=== PATIENT | male | born 1965 | race American Indian/Alaskan Native ===

== ENCOUNTER 2022-05-20 06:12 | Inpatient (IN) | payer OTHER ==
[2022-05-20] MEDS ORDERED: LIDOCAINE 1%/EPINEPHRINE 1:100,000 VIAL (20 ML) INFILTRATI NR (07:53)
--- NOTE | 2022-05-20 07:57 | Emergency Department Report ---
ED Syncope HPI - General Chief Complaint: Syncope Stated Complaint: SYNCOPE Time Seen by Provider: 05/20/22 07:02 Source: patient Exam Limitations: no limitations - History of Present Illness Initial Comments: 57-year male with a past medical history of HIV with undetectable viral load, chronic renal sufficiency, CHF presents to the hospital complaining of syncopal episodes x2. Patient states for the last 2 days he has had a URI with cough, nasal congestion, sinus drainage, and runny nose. He denies fever, nausea, vomiting, headache, chest pain, shortness of breath, abdominal pain, diarrhea, or dysuria. Patient has been vaccinated for COVID and boosted Patient denies history of hypertension however, given his current medications and current blood pressure I suspect that he does have underlying hypertension Patient's current medications include Carvedilol 25 mg twice daily Atorvastatin 40 mg daily Pantoprazole 40 mg daily Biktarvy Entresto [id number] twice daily Allergies: Flagyl Since he has had URI symptoms he is taking [id number] Tylenol medication that contains phenylephrine and guaifenesin. He also was taking fluticasone nasal spray without relief and then switched to oxymetazoline nasal spray Patient had a syncopal episode 3 weeks ago and was placed on a monitor car operator 1.5 weeks ago to monitor event PMD is [facility]. - Related Data Allergies/Adverse Reactions: Allergies metronidazole [From Flagyl] Allergy (Verified 05/20/22 08:05) Rash ED Review of Systems ROS: Stated complaint: SYNCOPE Other details as noted in HPI Comment: All other systems reviewed and negative ED Past Medical Hx - Past Medical History Hx Congestive Heart Failure: Yes Hx Renal Disease: Yes Hx HIV: Yes ED Physical Exam - General Limitations: No Limitations - Other Other exam information: General: No acute distress Head: Posterior vertical scalp laceration 4 cm Eyes: normal appearance ENT: Moist mucous membranes Neck: Normal appearance, no midline tenderness Chest: Clear to auscultation bilaterally dry cough noted CV: Regular rate and rhythm Abdomen: Soft, normal bowel sounds, nontender, nondistended, no rebound or gu arding Back: Normal inspection Extremity: Normal inspection, full range of motion Neuro: Alert O x 3, no facial asymmetry, speech clear, no gross motor sensory deficit Psych: Appropriate behavior Skin: No rash ED Course Vital Signs 05/20/22 05/20/22 05/20/22 07:52 09:38 11:08 Temperature 98.6 F 98.0 F Pulse Rate 81 83 Pulse Rate [ 83 Lying] Respiratory 14 14 Rate Blood Pressure 149/102 [Lying] Blood Pressure 150/97 165/108 [Right] O2 Sat by Pulse 100 100 Oximetry 05/20/22 13:00 Temperature Pulse Rate 81 Pulse Rate [ Lying] Respiratory 12 Rate Blood Pressure [Lying] Blood Pressure 160/108 [Right] O2 Sat by Pulse 99 Oximetry - Consultations Consultation #1: 05/20/22 12:00 mikey Castro reviewed chart. recent admission for CP and syncope, seen by cardiolgy May 03 admitted decreased in EF, received cath. LAD 50% mid, RCA proximal 20-30% lesions identified. MEdical management and 30 monitor recommended, Ca veritoiogy apt tomorrow to remove halter monitor. No beds. She will speak to card and call back 05/20/22 12:44 received call back from Mikey YUEN at this time. SHE spoke to the cardiology nurse practitioner that evaluated the patient during recent admission. She states that they wanted to discharge patient on LifeVest given low EF and syncope however, had approval issues prior to discharge. Recommends admission to the hospital. [facility] do not have bed therefore they recommend admission here - Laceration /Wound Repair Head Wound Location: head (posterior scalp) Wound Length (cm): 4 Wound's Depth, Shape: linear Wound Explored: clean Irrigated w/ Saline (ccs): 100 Anesthesia: Lidocaine w/ Epi Volume Anesthetic (ccs): 5 Wound Repaired With: sutures (adrienne) Number of Sutures: 4 Layer Closure?: No Sterile Dressing Applied?: No ED Medical Decision Making - Lab Data Result diagrams: 05/20/22 08:22 05/20/22 08:22 Lab Results 05/20/22 05/20/22 05/20/22 Range/Units 08:22 08:22 08:22 WBC 8.5 (4.5-11.0) K/mm3 RBC 3.53 L (3.65-5.03) M/mm3 Hgb 11.6 L (11.8-15.2) gm/dl Hct 35.0 L (35.5-45.6) % MCV 99 H (84-94) fl MCH 33 H (28-32) pg MCHC 33 (32-34) % RDW 13.6 (13.2-15.2) % Plt Count 246 (140-440) K/mm3 Lymph % (Auto) 20.8 (13.4-35.0) % [place] % (Auto) 11.9 H (0.0-7.3) % Eos % (Auto) 2.8 (0.0-4.3) % Baso % (Auto) 0.5 (0.0-1.8) % Lymph # (Auto) 1.8 (1.2-5.4) K/mm3 [place] # (Auto) 1.0 H (0.0-0.8) K/mm3 Eos # (Auto) 0.2 (0.0-0.4) K/mm3 Baso # (Auto) 0.0 (0.0-0.1) K/mm3 Seg Neutrophils % 64.0 (40.0-70.0) % Seg Neutrophils # 5.4 (1.8-7.7) K/mm3 D-Dimer 306.39 H (0-234) ng/mlDDU Sodium 144 (137-145) mmol/L Potassium 4.2 (3.6-5.0) mmol/L Chloride 106.7 (98-107) mmol/L Carbon Dioxide 26 (22-30) mmol/L Anion Gap 16 mmol/L BUN 11 (9-20) mg/dL Creatinine 1.3 (0.8-1.3) mg/dL Estimated GFR 57 ml/min BUN/Creatinine Ratio 8 % Glucose 117 H (75-100) mg/dL Calcium 9.5 (8.4-10.2) mg/dL Magnesium (1.7-2.3) mg/dL Total Bilirubin 0.30 (0.1-1.2) mg/dL AST 21 (5-40) units/L ALT 17 (7-56) units/L Alkaline Phosphatase 81 (35-129) units/L Total Creatine Kinase 135 (55-170) units/L CK-MB (CK-2) 1.0 (0.0-4.0) ng/mL CK-MB (CK-2) Rel Index 0.7 (0-4) Troponin T < 0.010 (0.00-0.029) ng/mL Total Protein 7.9 (6.3-8.2) g/dL Albumin 4.4 (3.9-5) g/dL Albumin/Globulin Ratio 1.3 % 05/20/22 Range/Units 08:22 WBC (4.5-11.0) K/mm3 RBC (3.65-5.03) M/mm3 Hgb (11.8-15.2) gm/dl Hct (35.5-45.6) % MCV (84-94) fl MCH (28-32) pg MCHC (32-34) % RDW (13.2-15.2) % Plt Count (140-440) K/mm3 Lymph % (Auto) (13.4-35.0) % [place] % (Auto) (0.0-7.3) % Eos % (Auto) (0.0-4.3) % Baso % (Auto) (0.0-1.8) % Lymph # (Auto) (1.2-5.4) K/mm3 [place] # (Auto) (0.0-0.8) K/mm3 Eos # (Auto) (0.0-0.4) K/mm3 Baso # (Auto) (0.0-0.1) K/mm3 Seg Neutrophils % (40.0-70.0) % Seg Neutrophils # (1.8-7.7) K/mm3 D-Dimer (0-234) ng/mlDDU Sodium (137-145) mmol/L Potassium (3.6-5.0) mmol/L Chloride (98-107) mmol/L Carbon Dioxide (22-30) mmol/L Anion Gap mmol/L BUN (9-20) mg/dL Creatinine (0.8-1.3) mg/dL Estimated GFR ml/min BUN/Creatinine Ratio % Glucose (75-100) mg/dL Calcium (8.4-10.2) mg/dL Magnesium 2.20 (1.7-2.3) mg/dL Total Bilirubin (0.1-1.2) mg/dL AST (5-40) units/L ALT (7-56) units/L Alkaline Phosphatase (35-129) units/L Total Creatine Kinase (55-170) units/L CK-MB (CK-2) (0.0-4.0) ng/mL CK-MB (CK-2) Rel Index (0-4) Troponin T (0.00-0.029) ng/mL Total Protein (6.3-8.2) g/dL Albumin (3.9-5) g/dL Albumin/Globulin Ratio % - EKG Data -: EKG Interpreted by Me EKG shows normal: sinus rhythm, ST-T waves (No STEMI) Rate: normal - Radiology Data Radiology results: report reviewed Reports for CT head, chest x-ray, CT angiogram chest reviewed - Medical Decision Making 57-year-old male presents with syncope. Recent admission to hospitalization in April for syncope with cardiac work-up with inpatient cardiac work-up. Apparently LifeVest was recommended/considered but not provided prior to discharge. Patient ED work-up unremarkable. During ED stay no signs of arrhythmia, elevated troponin, pulmonary embolism, or acute intracranial abno rmality identified. Case jackie with [place] physician who advises admission here. Case discussed with hospitalist for admission. Patient states that family physician wanted to provide a LifeVest. Holter monitor was recommended at this time. He is actually scheduled to see his head automatic sawyer with [facility] tomorrow but will be admitted after discussion based on current [place] physicians recommendation Critical Care Time: No Critical care attestation.: If time is entered above; I have spent that time in minutes in the direct care of this critically ill patient, excluding procedure time. ED Disposition Clinical Impression: Syncope, Chronic CHF, URI (upper respiratory infection), HTN (hypertension), HIV (human immunodeficiency virus infection), Occipital scalp laceration Disposition: ADMITTED INPATIENT Is pt being admited?: Yes Condition: Stable Instructions: Syncope (ED), Hypertension (ED) Referrals: [facility] [Other] - 3-5 Days Time of Disposition: 12:47 (DR Huber/hospitalist)
--- NOTE | 2022-05-20 08:16 | XRay Report ---
XR chest 1V ap INDICATION / CLINICAL INFORMATION: cough, uri, syncope. COMPARISON: None available. FINDINGS: SUPPORT DEVICES: None. HEART /PULMONARY VASCULATURE: No significant abnormality. LUNGS / PLEURA: No significant pulmonary or pleural abnormality. No pneumothorax. ADDITIONAL FINDINGS: No significant additional findings. IMPRESSION: 1. No acute findings. Signer Name: Rohan Aparicio MD Signed: 05/20/2022 8:11 AM Workstation Name: [id number]
--- NOTE | 2022-05-20 08:25 | Cat Scan Report ---
CT HEAD WITHOUT CONTRAST INDICATION / CLINICAL INFORMATION: syncope, scalp laceration. TECHNIQUE: Axial imaging performed from the skull apex through the skull base without the use of cont rast. Sagittal and coronal reformatted images. All CT scans at this location are performed using CT dose reduction for ALARA by means of automated exposure control. COMPARISON: None available. FINDINGS: CEREBRAL PARENCHYMA: No significant abnormality. No acute territorial infarct. Mild chronic microvasc ular ischemic changes in the white matter are noted which appear appropriate for this person's age. HEMORRHAGE: None. EXTRA-AXIAL SPACES: Normal in size and morphology for the patient's age. VENTRICULAR SYSTEM: Normal in size and morphology for the patient's age. MIDLINE SHIFT OR HERNIATION: None. CEREBELLUM / BRAINSTEM: Chronic 9 mm infarct is identified in the posterior right cerebellar hemisphe re on image 8. CALVARIUM: No significant abnormality. ORBITS: Normal as visualized. PARANASAL SINUSES / MASTOID AIR CELLS: Normal as visualized. SOFT TISSUES of HEAD: No significant abnormality. ADDITIONAL FINDINGS: None. IMPRESSION: No acute intracranial abnormality. Chronic findings as described. Signer Name: Allen Hannah Jr, MD Signed: 05/20/2022 8:20 AM Workstation Name: [id number]
[2022-05-20 09:13] LABS: Basophils % (Auto) 0.5 % (0.0-1.8); Eosinophils # (Auto) 0.2 K/mm3 (0.0-0.4); Eosinophils % (Auto) 2.8 % (0.0-4.3); Hemoglobin 11.6 gm/dl (11.8-15.2); Lymphocytes # (Auto) 1.8 K/mm3 (1.2-5.4); Lymphocytes % (Auto) 20.8 % (13.4-35.0); Mean Corpuscular HGB Conc 33 % (32-34); Mean Corpuscular Volume 99 fl (84-94); Monocytes % (Auto) 11.9 % (0.0-7.3); Platelet Count 246 K/mm3 (140-440); Red Blood Count 3.53 M/mm3 (3.65-5.03); Red Cell Distribution Width 13.6 % (13.2-15.2)
[2022-05-20 09:48] LABS: Alanine Aminotransferase 17 units/L (7-56); Albumin 4.4 g/dL (3.9-5); BUN/Creatinine Ratio 8; Blood Urea Nitrogen 11 mg/dL (9-20); Calcium 9.5 mg/dL (8.4-10.2); Hemolysis Index 4
--- NOTE | 2022-05-20 10:53 | Cat Scan Report ---
CTA CHEST WITH CONTRAST INDICATION / CLINICAL INFORMATION: syncope, mild ddimer elevation. TECHNIQUE: Axial CT images were obtained through the chest after injection of 100 cc of Omnipaque 350 IV contrast. 3 plane MIP and/or 3D reconstructions were produced. All CT scans at this location are performed using CT dose reduction for ALARA by means of automated exposure control. COMPARISON: None available. FINDINGS: PULMONARY EMBOLUS: None. THORACIC AORTA: No significant abnormality. HEART: No significant abnormality. CORONARY ARTERY CALCIFICATION: Absent -- None. MEDIASTINUM / KAYLI: No significant abnormality. PLEURA: No pleural effusion. No pneumothorax. LUNGS: No acute air space or interstitial disease. ADDITIONAL FINDINGS: None. UPPER ABDOMEN: No acute findings. SKELETAL STRUCTURES: No significant osseous abnormality. IMPRESSION: 1. No CT evidence for pulmonary embolism. 2. No acute findings. Signer Name: Allen Hannah Jr, MD Signed: 05/20/2022 10:48 AM Workstation Name: [id number]
--- NOTE | 2022-05-20 10:59 | Electrocardiograph Report ---
[facility] Test Date: 2022-05-20 Test Time: 07:03:20 Pat Name: CHRISTOPHER PATEL Department: Room: Gender: M Straightening Machine Feeder: KARLA : 1965 Requested By: RAJESH ROMEO Order Number: [id number] Reading MD: Roddy Chowdary Measurements Intervals [place] Rate: 77 P: 11 NC: 158 QRS: -16 QRSD: 92 T: -2 QT: 360 QTc: 409 Interpretive Statements Sinus rhythm Borderline T abnormalities, diffuse leads No previous ECG available for comparison Electronically Signed On 05-20-2022 10:59:26 EDT by Roddy Chowdary
[2022-05-20] MEDS ORDERED: ACETAMINOPHEN 325 MG TAB PO PRN ×2 (12:59→21:46)
[2022-05-20] MEDS ORDERED: ONDANSETRON 4 MG/2 ML INJ IV PRN ×2 (12:59→21:46)
[2022-05-20] MEDS ORDERED: MORPHINE 2 MG/1 ML INJ IV PRN (12:59)
--- NOTE | 2022-05-20 21:41 | History and Physical Report ---
History of Present Illness Date of examination: 05/20/22 Date of admission: 05/20/22 12:59 Chief complaint: Passed out this a.m. History of present illness: 57-year-old male with past medical history of HIV with undetectable viral load, CHF apparently passed out x2 desktop publishing associate around 1:30 AM and 3 AM. Patient has been having upper respiratory tract infection for the last 2 days. Associated with sinus drainage runny nose. No fever or chills. Patient has been vaccinated for COVID. No chest pain. No aura before passing out. Patient states that he is due for LifeVest. Patient also says that his ejection fraction is 30%. Patient apparently follows with a fixture repairer fabricator at [facility]. Patient is from [facility]. Patient states that he has renal insufficiency but on checking labs 0 his creatinine is normal. No chest pain. No fever. Patient also had a syncopal episode 3 weeks ago. - Past Medical History --Congestive Heart Failure: Yes --Renal Disease: Yes --HIV: Yes -- surgical history --No Family history -Htn -social history -- no smoking /alcohol -Review of Systems --ROS: Constitutional no weight loss or weight gain no fever or chills HEENT no sore throat no post nasal drip no diplopia Neck no neck stiffness no lymph gland enlargement Chest and lungs no shortness of breath cough or wheezing CVS no chest pain no diaphoresis no palpitations GI no nausea no vomiting no diarrhea Genitourinary system no dysuria no flank pain Musculoskeletal system no muscle pains no joint pains SPA RECEPTIONIST syncope x2 Skin no rash no itching Psychiatric no depression no homicidal or suicidal tendencies Hematologic no lymphedema or bruising Endocrine no polydipsia no polyuria no cold intolerance no heat intolerance Medications and Allergies Allergies Allergy/AdvReac Type Severity Reaction Status Date / Time metronidazole [From Flagyl] Allergy Rash Verified 05/20/22 08:05 Home Medications Medication Instructions Recorded Confirmed Last Taken Type Pantoprazole [Protonix] 40 mg PO QDAY 05/21/22 05/21/22 1 Day Ago History ~05/20/22 Sacubitril/Valsartan [Entresto 97 1 tab PO BID 05/21/22 05/21/22 1 Day Ago Hist ory mg-103 mg Tablet] ~05/20/22 Active Meds: Active Medications Acetaminophen (Acetaminophen 325 Mg Tab) 650 mg PO Q4H PRN PRN Reason: Pain MILD(1-3)/Fever >100.5/GERMAN Morphine Sulfate (Morphine 2 Mg/1 Ml Inj) 2 mg IV Q4H PRN PRN Reason: Pain, Moderate (4-6) Ondansetron HCl (Ondansetron 4 Mg/2 Ml Inj) 4 mg IV Q8H PRN PRN Reason: Nausea And Vomiting Sodium Chloride (Sodium Chloride 0.9% 10 Ml Flush Syringe) 10 ml IV BID KARINA Sodium Chloride (Sodium Chloride 0.9% 10 Ml Flush Syringe) 10 ml IV PRN PRN PRN Reason: LINE FLUSH Exam - Constitutional Vitals: Temp Pulse Resp BP Pulse Ox 98.0 F 81 14 146/84 100 05/20/22 11:08 05/20/22 16:54 05/20/22 16:54 05/20/22 16:54 05/20/22 16:54 General appearance: Present: no acute distress, well-nourished - EENT Eyes: Present: PERRL ENT: hearing intact, clear oral mucosa - Neck Neck: Present: supple, normal ROM - Respiratory Respiratory effort: normal Respiratory: bilateral: CTA - Cardiovascular Heart rate: 78 Rhythm: regular Heart Sounds: Present: S1 & S2. Absent: rub, click - Extremities Extremities: no ischemia, pulses intact, pulses symmetrical, No edema Peripheral Pulses: within normal limits - Abdominal General gastrointestinal: Present: soft, non-tender, non-distended, normal bowel sounds Male genitourinary: Present: normal - Rectal Rectal Exam: deferred - Integumentary Integumentary: Present: clear, warm, dry - Musculoskeletal Musculoskeletal: gait normal, strength equal bilaterally - Psychiatric Psychiatric: appropriate mood/affect, intact judgment & insight - Neurologic Neurologic: CNII-XII intact, moves all extremities - Allied Health Allied health notes reviewed: nursing, case management HEART Score - HEART Score History: Moderately suspicious EKG: Normal Risk factors: 1-2 risk factors Troponin: Troponin T < 0.010 ng/mL (0.00-0.029) 05/20/22 08:22 - Critical Actions Critical Actions: 0-3 pts:0.9-1.7%risk of adverse cardiac event.Candidate for discharge Results - Labs CBC & Chem 7: 05/20/22 08:22 05/20/22 08:22 Labs: Laboratory Last Values WBC 8.5 K/mm3 (4.5-11.0) 05/20/22 08: RBC 3.53 M/mm3 (3.65-5.03) L 05/20/22 08:22 Hgb 11.6 gm/dl (11.8-15.2) L 05/20/22 08:22 Hct 35.0 % (35.5-45.6) L 05/20/22 08:22 MCV 99 fl (84-94) H 05/20/22 08:22 MCH 33 pg (28-32) H 05/20/22 08: MCHC 33 % (32-34) 05/20/22 08: RDW 13.6 % (13.2-15.2) 05/20/22 08: Plt Count 246 K/mm3 (140-440) 05/20/22 08:22 Lymph % (Auto) 20.8 % (13.4-35.0) 05/20/22 08: [place] % (Auto) 11.9 % (0.0-7.3) H 05/20/22 08:22 Eos % (Auto) 2.8 % (0.0-4.3) 05/20/22 08:22 Baso % (Auto) 0.5 % (0.0-1.8) 05/20/22 08:22 Lymph # (Auto) 1.8 K/mm3 (1.2-5.4) 05/20/22 08: [place] # (Auto) 1.0 K/mm3 (0.0-0.8) H 05/20/22 08:22 Eos # (Auto) 0.2 K/mm3 (0.0-0.4) 05/20/22 08:22 Baso # (Auto) 0.0 K/mm3 (0.0-0.1) 05/20/22 08: Seg Neutrophils % 64.0 % (40.0-70.0) 05/20/22 08: Seg Neutrophils # 5.4 K/mm3 (1.8-7.7) 05/20/22 08:22 D-Dimer 306.39 ng/mlDDU (0-234) H 09/08/22 08:22 Sodium 144 mmol/L (137-145) 05/20/22 08:22 Potassium 4.2 mmol/L (3.6-5.0) 05/20/22 08:22 Chloride 106.7 mmol/L (98-107) 05/20/22 08:22 Carbon Dioxide 26 mmol/L (22-30) 05/20/22 08:22 Anion Gap 16 mmol/L 05/20/22 08:22 BUN 11 mg/dL (9-20) 05/20/22 08:22 Creatinine 1.3 mg/dL (0.8-1.3) 05/20/22 08:22 Estimated GFR 57 ml/min 05/20/22 08:22 BUN/Creatinine Ratio 8 % 05/20/22 08: Glucose 117 mg/dL (75-100) H 05/20/22 08:22 Calcium 9.5 mg/dL (8.4-10.2) 05/20/22 08:22 Magnesium 2.20 mg/dL (1.7-2.3) 05/20/22 08:22 Total Bilirubin 0.30 mg/dL (0.1-1.2) 05/20/22 08:22 AST 21 units/L (5-40) 05/20/22 08:22 ALT 17 units/L (7-56) 05/20/22 08:22 Alkaline Phosphatase 81 units/L (35-129) 05/20/22 08:22 Total Creatine Kinase 135 units/L (55-170) 05/20/22 08:22 CK-MB (CK-2) 1.0 ng/mL (0.0-4.0) 05/20/22 08:22 CK-MB (CK-2) Rel Index 0.7 (0-4) 05/20/22 08:22 Troponin T < 0.010 ng/mL (0.00-0.029) 05/20/22 08:22 Total Protein 7.9 g/dL (6.3-8.2) 05/20/22 08:22 Albumin 4.4 g/dL (3.9-5) 05/20/22 08:22 Albumin/Globulin Ratio 1.3 % 05/20/22 08:22 - Imaging and Cardiology EKG: report reviewed (Sinus rhythm borderline T wave abnormalities) CT scan - abdomen: report reviewed Assessment and Plan Advance Directives: Yes (Full code) VTE prophylaxis?: Chemical Plan of care discussed with patient/family: Yes - Patient Problems (1) Syncope Current Visit: Yes Status: Acute Qualifiers: Syncope type: vasovagal syncope Qualified Code(s): R55 - Syncope and collapse Plan to address problem: Syncope work-up Echocardiogram for ejection fraction, valve function abnormalities and wall m otion abnormalities (2) HTN (hypertension) Current Visit: Yes Status: Chronic Qualifiers: Hypertension type: primary hypertension Qualified Code(s): I10 - Essential (primary) hypertension Plan to address problem: Continue antihypertensives (3) HIV (human immunodeficiency virus infection) Current Visit: Yes Status: Chronic Qualifiers: HIV symptom status: asymptomatic, with no history of HIV-related illness Qualified Code(s): Z21 - Asymptomatic human immunodeficiency virus [HIV] infection status Plan to address problem: Continue antiretrovirals Antiretrovirals to be reconciled (4) Chronic CHF Current Visit: Yes Status: Chronic Qualifiers: Heart failure type: combined systolic and diastolic Qualified Code(s): I50.42 - Chronic combined systolic (congestive) and diastolic (congestive) heart failure Plan to address problem: Echocardiogram for ejection fraction (5) Arrhythmia Current Visit: Yes Status: Chronic Plan to address problem: Patient on event monitor Patient follows with cardiology at [facility] consult requested Apparently patient is due for LifeVest (6) DVT prophylaxis Current Visit: Yes Status: Acute Plan to address problem: On heparin and GI prophylaxis (7) Advanced care planning/counseling discussion Current Visit: Yes Status: Acute Plan to address problem: Disease education conducted, care plan discussed, small prognosis and diagnosis discussed. Patient is full code. Patient acknowledges understanding of the care plan. +30 minutes.
[2022-05-20] MEDS ORDERED: METOCLOPRAMIDE 10 MG/2 ML INJ IV PRN (21:46)
[2022-05-20] MEDS ORDERED: oxyCODONE /ACETAMINOPHEN 5-325MG TAB PO PRN (21:46)
[2022-05-20] MEDS: FAMOTIDINE 20 MG TAB PO SCH (23:00)
[2022-05-21] MEDS: HYDROmorphone 0.5 MG/0.5 ML INJ IV PRN ×2 (09:25→13:26)
[2022-05-21] MEDS: FAMOTIDINE 20 MG TAB PO SCH ×2 (09:25→22:04)
--- NOTE | 2022-05-21 09:56 | Progress Note ---
Assessment and Plan Assessment and plan: Advance Directives: Yes (Full code) VTE prophylaxis?: Chemical Plan of care discussed with patient/family: Yes - Patient Problems --Syncopal episode x2 Syncope work-up is in progress Fall precautions, physical therapy Physical therapy evaluation and management/DC needs Possible discharge tomorrow pending PT evaluation recommendations Syncope work-up ; negative CT head without contrast; no acute intracranial abnormality, chronic findings as described below Chest x-ray; no acute abnormality noted CT chest; no evidence of PE, no other acute abnormalities Echocardiogram; LVEF 35 to 40% no pericardial effusion Carotid Doppler; less than 50% stenosis in bilateral carotid arteries no hemo dynamically significant. Stenosis --History of HTN (hypertension) moderate control Continue current antihypertensives As needed medications --History of HIV (human immunodeficiency virus infection) Continue antiretrovirals Antiretrovirals to be reconciled -- Chronic systolic CHF present on admission Echo LVEF 35 to 40% Continue antifailure medications --History of arrhythmia Patient on event monitor Patient follows with cardiology at [facility] consult requested Apparently patient is due for LifeVest --DVT prophylaxis On heparin and GI prophylaxis -- Advanced care planning/counseling discussion Disease education conducted, care plan discussed, small prognosis and diagnosis discussed. Patient is full code. Patient acknowledges understanding of the care plan. +30 minutes. --preventative health care counseling; 35 minutes Advised fall precautions, advised to use cane or a walker if needed Advised to comply with medications, diet, follow-up visits Advised to comply with HIV medications and treatment plan Patient verbalized understanding [facility] physician I called [facility] physician at [phone] discussed in detail with Dr. Mascorro patient's condition, Tests and reports physical therapy and improvement Pending PT evaluation and recommendations Dr. Mascorro has some questions I answered all of them, will follow PT evaluation and recommendations and discharge her home tomorrow if stable. Dr. Mascorro was appreciative of my call History Interval history: I have seen and examined the patient at the bedside Patient's chart and medications reviewed No new events reported by nursing Patient was admitted with history of syncopal episode No new episodes of syncope Vital signs reviewed Hospitalist Physical - Constitutional Vitals: Temp Pulse Resp BP Pulse Ox 98.0 F 76 18 154/96 97 05/21/22 08:31 05/21/22 08:31 05/21/22 08:31 05/21/22 08:31 09/09/22 08:31 General appearance: Present: no acute distress, well-nourished, obese - EENT Eyes: Present: PERRL, EOM intact - Neck Neck: Present: supple, normal ROM - Respiratory Respiratory effort: normal Respiratory: bilateral: diminished, negative: rales, rhonchi, wheezing - Cardiovascular Rhythm: regular Heart Sounds: Present: S1 & S2 - Extremities Extremities: no ischemia, No edema - Abdominal General gastrointestinal: soft, non-tender, non-distended, normal bowel sounds - Integumentary Integumentary: Present: clear, warm - Psychiatric Psychiatric: appropriate mood/affect, cooperative - Neurologic Neurologic: CNII-XII intact, moves all extremities HEART Score - HEART Score EKG: Normal Risk factors: 1-2 risk factors Troponin: Troponin T < 0.010 ng/mL (0.00-0.029) 05/20/22 22:44 - Critical Actions Critical Actions: 0-3 pts:0.9-1.7%risk of adverse cardiac event.Candidate for discharge Results - Labs CBC & Chem 7: 05/21/22 15:09 05/21/22 15:09 Labs: Laboratory Last Values WBC 8.5 K/mm3 (4.5-11.0) 05/20/22 08:22 RBC 3.53 M/mm3 (3.65-5.03) L 05/20/22 08:22 Hgb 11.6 gm/dl (11.8-15.2) L 05/20/22 08:22 Hct 35.0 % (35.5-45.6) L 05/20/22 08:22 MCV 99 fl (84-94) H 05/20/22 08:22 MCH 33 pg (28-32) H 05/20/22 08:22 MCHC 33 % (32-34) 05/20/22 08:22 RDW 13.6 % (13.2-15.2) 05/20/22 08:22 Plt Count 246 K/mm3 (140-440) 05/20/22 08:22 Lymph % (Auto) 20.8 % (13.4-35.0) 05/20/22 08:22 [place] % (Auto) 11.9 % (0.0-7.3) H 05/20/22 08:22 Eos % (Auto) 2.8 % (0.0-4.3) 05/20/22 08:22 Baso % (Auto) 0.5 % (0.0-1.8) 05/20/22 08:22 Lymph # (Auto) 1.8 K/mm3 (1.2-5.4) 05/20/22 08:22 [place] # (Auto) 1.0 K/mm3 (0.0-0.8) H 05/20/22 08:22 Eos # (Auto) 0.2 K/mm3 (0.0-0.4) 05/20/22 08:22 Baso # (Auto) 0.0 K/mm3 (0.0-0.1) 05/20/22 08:22 Seg Neutrophils % 64.0 % (40.0-70.0) 05/20/22 08: Seg Neutrophils # 5.4 K/mm3 (1.8-7.7) 05/20/22 08:22 D-Dimer 306.39 ng/mlDDU (0-234) H 05/20/22 08:22 Sodium 144 mmol/L (137-145) 05/20/22 08:22 Potassium 4.2 mmol/L (3.6-5.0) 05/20/22 08:22 Chloride 106.7 mmol/L (98-107) 05/20/22 08:22 Carbon Dioxide 26 mmol/L (22-30) 05/20/22 08:22 Anion Gap 16 mmol/L 05/20/22 08:22 BUN 11 mg/dL (9-20) 05/20/22 08:22 Creatinine 1.3 mg/dL (0.8-1.3) 05/20/22 08:22 Estimated GFR 57 ml/min 05/20/22 08:22 BUN/Creatinine Ratio 8 % 05/20/22 08:22 Glucose 117 mg/dL (75-100) H 05/20/22 08:22 Calcium 9.5 mg/dL (8.4-10.2) 05/20/22 08:22 Magnesium 2.20 mg/dL (1.7-2.3) 05/20/22 08:22 Total Bilirubin 0.30 mg/dL (0.1-1.2) 05/20/22 08:22 AST 21 units/L (5-40) 05/20/22 08:22 ALT 17 units/L (7-56) 05/20/22 08:22 Alkaline Phosphatase 81 units/L (35-129) 05/20/22 08:22 Total Creatine Kinase 135 units/L (55-170) 05/20/22 08:22 CK-MB (CK-2) 1.0 ng/mL (0.0-4.0) 05/20/22 08:22 CK-MB (CK-2) Rel Index 0.7 (0-4) 05/20/22 08:22 Troponin T < 0.010 ng/mL (0.00-0.029) 05/20/22 22:44 Total Protein 7.9 g/dL (6.3-8.2) 05/20/22 08:22 Albumin 4.4 g/dL (3.9-5) 05/20/22 08:22 Albumin/Globulin Ratio 1.3 % 05/20/22 08:22 [place]/IV: Voiding Method Urinal Active Medications - Current Medications Current Medications: Generic Name Dose Route Start Last Admin Trade Name Freq PRN Reason Stop Dose Admin Acetaminophen 650 mg 05/20/22 21:46 Acetaminophen 325 Mg Tab PO Q4H PRN Pain MILD(1-3)/Fever >100.5/GERMAN Famotidine 20 mg 05/20/22 22:00 05/21/22 09:25 Famotidine 20 Mg Tab PO 20 mg BID KARINA Administration Hydromorphone HCl 0.5 mg 05/20/22 21:46 05/21/22 09:25 Hydromorphone 0.5 Mg/0.5 Ml Inj IV 0.5 mg Q3H PRN Administration Pain , Severe (7-10) Metoclopramide HCl 10 mg 05/20/22 21:46 Metoclopramide 10 Mg/2 Ml Inj IV Q6H PRN Nausea And Vomiting Morphine Sulfate 2 mg 05/20/22 12:59 Morphine 2 Mg/1 Ml Inj IV Q4H PRN Pain, Moderate (4-6) Ondansetron HCl 4 mg 05/20/22 21:46 Ondansetron 4 Mg/2 Ml Inj IV Q8H PRN Nausea And Vomiting Oxycodone/Acetaminophen 1 tab 05/20/22 21:46 Oxycodone /Acetaminophen 5-325mg Tab PO Q6H PRN Pain, Moderate (4-6) Sodium Chloride 10 ml 05/20/22 22:00 05/21/22 09:25 Sodium Chloride 0.9% 10 Ml Flush Syringe IV 10 ml BID KARINA Administration Sodium Chloride 10 ml 05/20/22 21:46 Sodium Chloride 0.9% 10 Ml Flush Syringe IV PRN PRN LINE FLUSH
--- NOTE | 2022-05-21 10:33 | Vascular Lab Report ---
DUPLEX DOPPLER ULTRASOUND CAROTID, BILATERAL INDICATION / CLINICAL INFORMATION: Syncope. COMPARISON: None available. FINDINGS: RIGHT CAROTID: Minimal atherosclerotic plaque. - PLAQUE ESTIMATE (%): < 50% - CCA velocity: 85 cm/sec. - ICA peak systolic velocity: 75 cm/sec. - ICA/CCA PSV Ratio: Less than 2. Right Vertebral Artery: Antegrade flow. LEFT CAROTID: Minimal atherosclerotic plaque. - PLAQUE ESTIMATE (%): < 50% - CCA velocity: 87 cm/sec. - ICA peak systolic velocity: 94 cm/sec. - ICA/CCA PSV Ratio: Less than 2. Left Vertebral Artery: Antegrade flow. IMPRESSION: 1. Right Internal Carotid Artery: Less than 50% diameter stenosis. 2. Left Internal Carotid Artery: Less than 50% diameter stenosis. Velocity criteria are extrapolated from diameter data as defined by the Society of Radiologists in Ul trasound Consensus Conference, Radiology 2003; 229;340-346. NO STENOSIS (NORMAL) - Plaque = none; ICA PSV < 125 cm/sec; ICA/CCA PSV Ratio < 2.0 <50% STENOSIS - Plaque < 50%; ICA PSV < 125 cm/sec; ICA/CCA PSV Ratio < 2.0 50-69% STENOSIS - Plaque > 50%; ICA PSV = 125-230 cm/sec; ICA/CCA PSV Ratio = 2.0-4.0 >70% BUT <100% STENOSIS - Plaque > 50%; ICA PSV > 230 cm/sec; ICA/CCA PSV Ratio > 4.0 NEAR OCCLUSION - Plaque = visible lumen; ICA PSV = high/low/none; ICA/CCA PSV Ratio = variable TOTAL OCCLUSION - Plaque = no lumen; ICA PSV = none; ICA/CCA PSV Ratio = N/A Scribed by: Zuleyma Tavares RDMS, RVT, RMSKS Scribed: 05/21/2022 9:28 AM I have reviewed the images, agree with this report, and edited this report as needed. Signer Name: Genaro West MD Signed: 05/21/2022 10:29 AM Workstation Name: [email or web address]
[2022-05-21 15:49] LABS: Alanine Aminotransferase 17 units/L (7-56); Albumin 3.9 g/dL (3.9-5); BUN/Creatinine Ratio 10; Basophils % (Auto) 0.6 % (0.0-1.8); Blood Urea Nitrogen 13 mg/dL (9-20); Calcium 9.1 mg/dL (8.4-10.2); Eosinophils # (Auto) 0.2 K/mm3 (0.0-0.4); Eosinophils % (Auto) 3.7 % (0.0-4.3); Hematocrit 36.5 % (35.5-45.6); Hemolysis Index 7; Lymphocytes # (Auto) 1.8 K/mm3 (1.2-5.4); Mean Corpuscular HGB Conc 33 % (32-34); Mean Corpuscular Volume 100 fl (84-94); Monocytes # (Auto) 0.8 K/mm3 (0.0-0.8); Monocytes % (Auto) 12.5 % (0.0-7.3); Platelet Count 238 K/mm3 (140-440); Red Blood Count 3.65 M/mm3 (3.65-5.03); Red Cell Distribution Width 14.1 % (13.2-15.2)
--- NOTE | 2022-05-21 17:57 | Event Note ---
Date: 05/21/22 [facility] physician I called [facility] physician at [phone] discussed in detail with Dr. Mascorro patient's condition, Tests and reports physical therapy and improvement Pending PT evaluation and recommendations Dr. Mascorro has some questions I answered all of them, will follow PT evaluation and recommendations and discharge her home tomorrow if stable. Dr. Mascorro was appreciative of my call
[2022-05-21] MEDS: carvediloL 25 MG TAB PO SCH (22:03)
[2022-05-22] MEDS: carvediloL 25 MG TAB PO SCH (09:34)
[2022-05-22] MEDS: FAMOTIDINE 20 MG TAB PO SCH (09:35)
[2022-05-22 12:00] VITALS: BP 152/99
--- NOTE | 2022-05-22 13:49 | Discharge Summary ---
Providers - Providers Date of Admission: 05/20/22 12:59 Date of discharge: 05/22/22 Attending physician: KENNEDY CONLEY 05/21/22 17:11 Physical Therapy Evaluation and Treat [CONS] Routine Comment: Reason For Exam: History of syncope/evaluate and treat/DC needs Hospitalization Reason for admission: Syncopal episode x2 at home Condition: Stable Pertinent studies: CT head without contrast; no acute intracranial abnormality, chronic findings as described below Chest x-ray; no acute abnormality noted CT chest; no evidence of PE, no other acute abnormalities Echocardiogram; LVEF 35 to 40% no pericardial effusion Carotid Doppler; less than 50% stenosis in bilateral carotid arteries no hemodynamically significant. Stenosis Hospital course: 57-year-old male patient with significant past medical history of HIV undetectable viral load,, CHF was admitted through emergency room with syncopal episode x2 on the morning around 1:30 AM and 3 AM patient gives history of upper respiratory symptoms. Patient was admitted placed on fall precautions had extensive syncope work-up which was negative Patient was also evaluated by physical therapy, no unsteady gait no PT needs, Patient did not get any new episodes of syncope or dizziness or unsteady gait Today patient is comfortable no new complaints, ambulatory and tolerating oral nutrition hemodynamically and clinically stable at discharge I discussed in detail with [place] physician every day and they agreed with the discharge planning today and patient would follow-up with his primary care physician and possible neurologist if he has recurrent syncopal episode for further evaluation and management but the physicians from [facility] patient is stable at discharge Assessment and plan: --Syncopal episode x2/due to autonomic dysfunction Fall precautions, physical therapy Physical therapy evaluation and management/DC needs Possible discharge tomorrow pending PT evaluation recommendations Extensive syncope work-up ; negative --History of HTN (hypertension) moderate control Continue current antihypertensives As needed medications --History of HIV (human immunodeficiency virus infection) Continue antiretrovirals Antiretrovirals to be reconciled -- Chronic systolic CHF present on admission Echo LVEF 35 to 40% Continue antifailure medications --History of arrhythmia Patient on event monitor Patient follows with cardiology at [facility] consult requested Apparently patient is due for LifeVest --Obesity; BMI 30.3 Advised exercise as tolerated weight reduction when medically stable --DVT prophylaxis On heparin and GI prophylaxis [place] physician I called [place] physician at [phone] discussed in detail with Dr. Mascorro patient's condition, Tests and reports physical therapy and improvement Pending PT evaluation and recommendations Dr. Mascorro has some questions I answered all of them, will follow PT evaluation and recommendations and discharge her home tomorrow if stable. Dr. Mascorro was appreciative of my call Patient is hemodynamically and clinically stable at discharge / Disposition: 01 HOME / SELF CARE / HOMELESS Final Discharge Diagnosis (Prints w/discharge instructions): Syncopal episode x2 due to autonomic dysfunction. hypertension moderate control. History of HIV. Chronic systolic congestive heart failure. History of arrhythmias. Obesity BMI 30.3 Time spent for discharge: 35 minutes Core Measure Documentation - Palliative Care Palliative Care/ Comfort Measures: Not Applicable - Core Measures Any of the following diagnoses?: none Exam - Constitutional Vitals: Temp Pulse Resp BP Pulse Ox 97.5 F L 77 18 152/99 96 05/22/22 11:26 05/22/22 11:26 05/22/22 11:42 05/22/22 11:05/22/22 11:42 General appearance: Present: no acute distress, well-nourished - EENT Eyes: Present: PERRL, EOM intact - Neck Neck: Present: supple, normal ROM - Respiratory Respiratory effort: normal Respiratory: bilateral: diminished, negative: rales, rhonchi, wheezing - Cardiovascular Rhythm: regular Heart Sounds: Present: S1 & S2 - Extremities Extremities: no ischemia, No edema - Abdominal General gastrointestinal: Present: soft, non-tender, non-distended, normal bowel sounds - Integumentary Integumentary: Present: clear, warm - Musculoskeletal Musculoskeletal: strength equal bilaterally - Psychiatric Psychiatric: appropriate mood/affect - Neurologic Neurologic: moves all extremities Plan Activity: advance as tolerated, fall precautions Diet: other Additional Instructions: If you have worsening symptoms contact MD or go to the nearest emergency room as needed. Advised fall precautions. 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
[2022-05-22] MEDS ORDERED: LISINOPRIL 5 MG TAB PO SCH (14:00)
== END 2022-05-22 17:17 | disposition home or self-care (01) | DRG 74 ==
LOC: ED 06:12 → 4A 12:59
PROVIDERS: ADMIT Internal Medicine; ATTEND Internal Medicine
DX: G90.8 Other disorders of autonomic nervous system (principal); I50.42 Chronic combined systolic (congestive) and diastolic (congestive) heart failure; Z21 Asymptomatic human immunodeficiency virus [HIV] infection status; I49.9 Cardiac arrhythmia, unspecified; I11.0 Hypertensive heart disease with heart failure; J06.9 Acute upper respiratory infection, unspecified; E66.9 Obesity, unspecified; S01.01XA Laceration without foreign body of scalp, initial encounter; Y93.89 Activity, other specified; Y92.89 Other specified places as the place of occurrence of the external cause; Y99.8 Other external cause status; Z68.30 Body mass index [BMI] 30.0-30.9, adult
CPT/HCPCS: 36415; 70450; 71045; 71275; 80053; 82550; 82553; 83735; 84484; 85025; 85379; 93005; 93306; 93880; 99285; G0378; C8929; J1170; Q9967